=== PATIENT | male | born 1970 | race Caucasian/White ===

== ENCOUNTER 2023-04-20 07:53 | Day surgery (SDC) | payer OTHER ==
[2023-04-17 16:45] VITALS: BMI 40.1
[2023-04-20 09:43] VITALS: TEMP 97.5
[2023-04-20 10:08] VITALS: BP 117/54; PULSE 73; RESP 19
== END 2023-04-20 10:25 | disposition home or self-care (01) ==
LOC: FASU-ENDO 07:53
PROVIDERS: ATTEND Internal Medicine Gastroenterology
PROC: 0DBN8ZX Excision of Sigmoid Colon, Via Natural or Artificial Opening Endoscopic, Diagnostic (ICD-10-PCS; 2023-04-20)
PROC: 0DBM8ZX Excision of Descending Colon, Via Natural or Artificial Opening Endoscopic, Diagnostic (ICD-10-PCS; principal; 2023-04-20 09:09)
DX: Z12.11 Encounter for screening for malignant neoplasm of colon (principal); D12.4 Benign neoplasm of descending colon; D12.5 Benign neoplasm of sigmoid colon; K57.30 Diverticulosis of large intestine without perforation or abscess without bleeding; Z86.010 Personal history of colon polyps; Z80.0 Family history of malignant neoplasm of digestive organs; Z83.719 Family history of colon polyps, unspecified
CPT/HCPCS: 88305-TC